=== PATIENT | male | born 1970 ===

== ENCOUNTER 2017-06-08 09:39 | Outpatient (CLI) | payer OTHER | END 2017-06-08 09:49 | disposition home or self-care (01) | LOC: RAD 09:39 | DX: M54.5 Low back pain (principal) ==

== ENCOUNTER 2018-03-27 10:15 | Outpatient (CLI) | payer OTHER | END 2018-03-27 17:34 | disposition home or self-care (01) | LOC: LAB 10:15 | DX: I10 Essential (primary) hypertension (principal); N39.0 Urinary tract infection, site not specified; E78.49 Other hyperlipidemia; E03.8 Other specified hypothyroidism; E11.9 Type 2 diabetes mellitus without complications; Z12.11 Encounter for screening for malignant neoplasm of colon; N40.1 Benign prostatic hyperplasia with lower urinary tract symptoms; E88.89 Other specified metabolic disorders ==

== ENCOUNTER 2018-06-04 06:39 | Outpatient (CLI) | payer OTHER | END 2018-06-04 06:59 | disposition home or self-care (01) | LOC: LAB 06:39 | DX: R11.0 Nausea (principal); K21.9 Gastro-esophageal reflux disease without esophagitis; E66.01 Morbid (severe) obesity due to excess calories; Z86.010 Personal history of colon polyps ==

== ENCOUNTER → 2018-06-08 | Outpatient (CLI) | payer OTHER | END | disposition home or self-care (01) | LOC: SONOGRAMA 07:10 → MAMO-SONO 07:15 | DX: R11.0 Nausea (principal); K21.9 Gastro-esophageal reflux disease without esophagitis; E66.01 Morbid (severe) obesity due to excess calories; Z86.010 Personal history of colon polyps ==

== ENCOUNTER 2018-07-17 06:47 | Outpatient (CLI) | payer OTHER | END 2018-07-17 07:00 | disposition home or self-care (01) | LOC: LAB 06:47 | DX: K29.00 Acute gastritis without bleeding (principal); K76.0 Fatty (change of) liver, not elsewhere classified; R16.0 Hepatomegaly, not elsewhere classified ==

== ENCOUNTER 2018-07-20 07:38 | Outpatient (CLI) | payer OTHER | END 2018-07-20 07:46 | disposition home or self-care (01) | LOC: RAD 07:38 | DX: M84.88 Other disorders of continuity of bone, other site (principal) ==

== ENCOUNTER 2018-07-25 07:15 | Outpatient (CLI) | payer OTHER | END 2018-07-25 07:27 | disposition home or self-care (01) | LOC: LAB 07:15 | DX: N18.9 Chronic kidney disease, unspecified (principal) ==

== ENCOUNTER → 2018-09-12 | Outpatient (CLI) | payer OTHER | END | disposition home or self-care (01) | LOC: LAB 06:39 | DX: N39.0 Urinary tract infection, site not specified (principal); E78.49 Other hyperlipidemia; I10 Essential (primary) hypertension; E11.9 Type 2 diabetes mellitus without complications; E03.8 Other specified hypothyroidism; Z12.11 Encounter for screening for malignant neoplasm of colon; R97.8 Other abnormal tumor markers; K86.89 Other specified diseases of pancreas; N40.1 Benign prostatic hyperplasia with lower urinary tract symptoms ==

== ENCOUNTER 2018-11-02 08:00 | Outpatient (CLI) | payer OTHER | END 2018-11-02 08:05 | disposition home or self-care (01) | LOC: LAB 08:00 | DX: E78.49 Other hyperlipidemia (principal); Z12.11 Encounter for screening for malignant neoplasm of colon ==

== ENCOUNTER 2018-12-11 07:30 | Outpatient (CLI) | payer OTHER | END 2018-12-11 08:17 | disposition home or self-care (01) | LOC: LAB 07:30 | DX: D20.0 Benign neoplasm of soft tissue of retroperitoneum (principal) ==

== ENCOUNTER → 2019-04-15 | Outpatient (CLI) | payer OTHER | END | disposition home or self-care (01) | LOC: RAD 10:29 | DX: S09.90XA Unspecified injury of head, initial encounter (principal); S42.401A Unspecified fracture of lower end of right humerus, initial encounter for closed fracture ==

== ENCOUNTER → 2019-06-11 07:06 | Outpatient (CLI) | payer OTHER | END | disposition home or self-care (01) | LOC: LAB 07:06 | DX: R97.8 Other abnormal tumor markers (principal); I10 Essential (primary) hypertension; N39.0 Urinary tract infection, site not specified; E78.00 Pure hypercholesterolemia, unspecified; E11.9 Type 2 diabetes mellitus without complications; Z12.11 Encounter for screening for malignant neoplasm of colon; E88.89 Other specified metabolic disorders; N40.0 Benign prostatic hyperplasia without lower urinary tract symptoms ==

== ENCOUNTER 2019-11-08 07:49 | Outpatient (CLI) | payer OTHER | END 2019-11-08 07:54 | disposition home or self-care (01) | LOC: SONOGRAMA 07:49 → RX STUDY 08:15 | PROVIDERS: ATTEND General Practice | DX: N40.0 Benign prostatic hyperplasia without lower urinary tract symptoms (principal); K00-K95 Diseases of the digestive system ==

== ENCOUNTER → 2020-07-17 06:51 | Outpatient (CLI) | payer OTHER | END | disposition home or self-care (01) | LOC: LAB 06:51 | PROVIDERS: ATTEND General Practice | DX: N39.0 Urinary tract infection, site not specified (principal); E11.9 Type 2 diabetes mellitus without complications; D80.8 Other immunodeficiencies with predominantly antibody defects; E78.49 Other hyperlipidemia; E03.8 Other specified hypothyroidism; Z12.11 Encounter for screening for malignant neoplasm of colon; R97.8 Other abnormal tumor markers; N40.0 Benign prostatic hyperplasia without lower urinary tract symptoms; M17.0 Bilateral primary osteoarthritis of knee; M94.0 Chondrocostal junction syndrome [Tietze] ==

== ENCOUNTER → 2021-03-08 08:41 | Outpatient (CLI) | payer OTHER | END | disposition home or self-care (01) | LOC: LAB 08:41 | PROVIDERS: ATTEND General Practice | DX: D50.8 Other iron deficiency anemias (principal); N39.0 Urinary tract infection, site not specified; E78.49 Other hyperlipidemia; E03.8 Other specified hypothyroidism; R73.09 Other abnormal glucose; Z12.11 Encounter for screening for malignant neoplasm of colon; E55.9 Vitamin D deficiency, unspecified; R97.8 Other abnormal tumor markers; N40.0 Benign prostatic hyperplasia without lower urinary tract symptoms; M06.0A Rheumatoid arthritis without rheumatoid factor, other specified site; M79.5 Residual foreign body in soft tissue ==

== ENCOUNTER → 2021-03-17 | Outpatient (CLI) | payer OTHER | END | disposition home or self-care (01) | LOC: LAB 07:30 | PROVIDERS: ATTEND Physical Medicine & Rehabilitation | DX: M54.59 Other low back pain (principal); E11.40 Type 2 diabetes mellitus with diabetic neuropathy, unspecified; M54.16 Radiculopathy, lumbar region ==

== ENCOUNTER 2021-04-06 07:15 | Inpatient (IN) | payer OTHER ==
[2021-04-06] MEDS ORDERED: ENALAPRIL MALEA10 MG (09:06)
[2021-04-06] MEDS ORDERED: INVOKANA300 MG (09:06)
[2021-04-06] MEDS ORDERED: ECOTRIN81 MG (09:07)
[2021-04-14] MEDS ORDERED: GABAPENTIN600 MG (14:33)
[2021-04-15] MEDS ORDERED: GABAPENTIN100 MG PO (12:32)
[2021-04-15] MEDS ORDERED: XARELTO10 MG PO (12:32)
[2021-04-15] MEDS ORDERED: NORFLEX100MG PO (12:32)
[2021-04-15] MEDS ORDERED: OXYC1TAB9 PO (12:32)
== END 2021-04-15 15:05 | disposition home or self-care (01) | DRG 470 ==
LOC: O/R 04-13 06:12 → SURH 04-13 07:00 → SURG 04-13 15:01
PROVIDERS: ADMIT Orthopaedic Surgery; ATTEND Orthopaedic Surgery
PROC: 0SRD0J9 Replacement of Left Knee Joint with Synthetic Substitute, Cemented, Open Approach (ICD-10-PCS; principal; 2021-04-13 07:00)
DX: M17.12 Unilateral primary osteoarthritis, left knee (principal); D62 Acute posthemorrhagic anemia; M85.662 Other cyst of bone, left lower leg; I10 Essential (primary) hypertension; E66.01 Morbid (severe) obesity due to excess calories; Z20.822 Contact with and (suspected) exposure to COVID-19

== ENCOUNTER 2021-09-23 06:20 | Outpatient (CLI) | payer OTHER ==
[~2021-09-23 06:20] MED LIST: ECOTRIN81 MG; ENALAPRIL MALEA10 MG; GABAPENTIN100 MG PO; GABAPENTIN600 MG; INVOKANA300 MG; NORFLEX100MG PO; OXYC1TAB9 PO; XARELTO10 MG PO
== END 2021-09-23 06:21 | disposition home or self-care (01) ==
LOC: LAB 06:20
PROVIDERS: ATTEND General Practice
DX: D80.9 Immunodeficiency with predominantly antibody defects, unspecified (principal); N39.0 Urinary tract infection, site not specified; E11.9 Type 2 diabetes mellitus without complications; E78.5 Hyperlipidemia, unspecified; E03.9 Hypothyroidism, unspecified; R73.9 Hyperglycemia, unspecified; Z12.11 Encounter for screening for malignant neoplasm of colon; N40.0 Benign prostatic hyperplasia without lower urinary tract symptoms; M06.09 Rheumatoid arthritis without rheumatoid factor, multiple sites; M79.9 Soft tissue disorder, unspecified

== ENCOUNTER 2021-09-23 07:44 | Outpatient (CLI) | payer OTHER | END 2021-09-23 07:48 | disposition home or self-care (01) | LOC: SONOGRAMA 07:44 | DX: N18.2 Chronic kidney disease, stage 2 (mild) (principal) ==